=== PATIENT | female | born 1990 ===

== ENCOUNTER 2023-09-26 08:03 | Outpatient (CLI) | payer OTHER | END 2023-09-26 08:05 | disposition home or self-care (01) | LOC: PRENATAL 08:03 | PROVIDERS: ATTEND Obstetrics & Gynecology Maternal & Fetal Medicine | DX: O36.80X0 Pregnancy with inconclusive fetal viability, not applicable or unspecified (principal); Z36.82 Encounter for antenatal screening for nuchal translucency; Z36.9 Encounter for antenatal screening, unspecified; O98.919 Unspecified maternal infectious and parasitic disease complicating pregnancy, unspecified trimester; Z3A.14 14 weeks gestation of pregnancy ==

== ENCOUNTER 2023-11-08 12:56 | Outpatient (CLI) | payer OTHER | END 2023-11-08 12:57 | disposition home or self-care (01) | LOC: PRENATAL 12:56 | PROVIDERS: ATTEND Obstetrics & Gynecology Maternal & Fetal Medicine | DX: O35.3XX0 Maternal care for (suspected) damage to fetus from viral disease in mother, not applicable or unspecified (principal); O44.00 Complete placenta previa NOS or without hemorrhage, unspecified trimester; O98.919 Unspecified maternal infectious and parasitic disease complicating pregnancy, unspecified trimester; Z3A.20 20 weeks gestation of pregnancy ==